=== PATIENT | female | born 2000 | race Caucasian/White ===

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

== ENCOUNTER 2024-05-06 23:23 | Emergency (ER) | payer MEDICAID, OTHER ==
[2024-05-06 23:29] VITALS: PULSE 85; O2SAT 99
[2024-05-08] MEDS ORDERED: AMOX1TAB16 MT (13:26)
== END 2024-05-06 23:46 | disposition left against medical advice (07) ==
LOC: ER 23:23
DX: R06.02 Shortness of breath (principal); Z53.21 Procedure and treatment not carried out due to patient leaving prior to being seen by health care provider